=== PATIENT | female | born 1960 | race Caucasian/White ===

== ENCOUNTER 2020-06-01 10:33 | Emergency (ER) | payer OTHER ==
[~2020-06-01] VITALS: Ht 160 cm; Wt 83.9 kg
--- NOTE | 2020-06-01 10:58 | Emergency Room Report ---
History of Present Illness General Chief Complaint: Sore Throat Source: Patient, Family Member Present Illness HPI The patient presents with a history of sore throat. She denies any fevers or chills. There is no cough or dyspnea. The patient denies exposure to any COVID-19 positive contacts. She has been close to a nurse that works in the emergency department. The patient does not smoke and denies major medical problems. Allergies: Coded Allergies: No Known Allergies (Unverified , 06/01/20) COVID-19 Screening Contact w/high risk pt: No Experienced COVID-19 symptoms?: No COVID-19 Testing performed [employer]: No Patient History Past Medical History: see triage record Social History: Denies: smoking Social History Narrative from [employer] [facility] Reviewed Nursing Documentation: PMH: Agreed; PSxH: Agreed Nursing Documentation-PMH Past Medical History: No Stated History Review of Systems Constitutional: Reports: see HPI ENT: Reports: see HPI Respiratory: Reports: see HPI Cardiovascular: Denies: chest pain Gastrointestinal: Denies: diarrhea, nausea, vomiting Genitourinary: Denies: dysuria Neurological: Denies: headache Physical Exam Vital Signs Date Time Temp Pulse Resp B/P (MAP) Pulse Ox O2 Delivery O2 Flow Rate FiO2 06/01/20 10:43 98.1 83 16 150/88 (108) 99 Room Air Sp02 EP Interpretation: reviewed, normal General Appearance: well appearing, no apparent distress, GCS 15 Head: normocephalic Eyes: bilateral eye normal inspection, bilateral eye PERRL ENT: normal pharynx, moist mucus membranes Respiratory: lungs clear, normal breath sounds Cardiovascular #1: regular rate, rhythm Cardiovascular #2: 2+ radial (R) Gastrointestinal: normal inspection, overweight Musculoskeletal: gait/station normal Neurologic: alert, grossly normal Psychiatric: mood/affect normal Skin: normal color, no rash, warm/dry Medical Decision Making Diagnostic Impression: Primary Impression: COVID-19 ruled out by laboratory testing ER Course Patient presents with sore throat. Differential includes viral pharyngitis, strep amongst others. Exam is against strep. At the request of staff COVID-19 testing is performed. Patient tested negative for COVID-19. Discussed results with patient. Patient stable for outpatient observation and treatment. Last Vital Signs Date Time Temp Pulse Resp B/P (MAP) Pulse Ox O2 Delivery O2 Flow Rate FiO2 06/01/20 11:40 98.1 98 16 150/88 99 Room Air Status: unchanged Disposition: HOME, SELF-CARE Condition: Stable Tay Giron MD Jun 01, 2020 10:58
[2020-06-01 11:09] VITALS: BP 150/88
[2020-06-01 11:40] VITALS: BP 150/88
== END 2020-06-01 11:40 | disposition home or self-care (01) ==
LOC: EMR 11:11
DX: Z03.818 Encounter for observation for suspected exposure to other biological agents ruled out (principal); J02.9 Acute pharyngitis, unspecified
CPT/HCPCS: U0002; Z7502; 99281